=== PATIENT | male | born 1965 | race Caucasian/White ===

== ENCOUNTER 2019-06-26 19:24 | Emergency (ER) | payer SELFPAY ==
[~2019-06-26] VITALS: Ht 182.9 cm; Wt 90.7 kg
[2019-06-26 19:32] VITALS: BP 146/90
== END 2019-06-27 00:56 | disposition left against medical advice (07) ==
LOC: EDBD 19:24 → ER 19:24
DX: F10.129 Alcohol abuse with intoxication, unspecified (principal); Z53.21 Procedure and treatment not carried out due to patient leaving prior to being seen by health care provider; Y90.9 Presence of alcohol in blood, level not specified
CPT/HCPCS: 36415; 73590; 80320

== ENCOUNTER 2019-06-29 01:30 | Emergency (ER) | payer BC, OTHER ==
[~2019-06-29] VITALS: Ht 177.8 cm; Wt 77.1 kg
[2019-06-29 04:04] VITALS: BP 135/88
[2019-06-29] MEDS ORDERED: cefTRIAXone SOD 1,000 MG VL IM ONE (04:30)
[2019-06-29] MEDS ORDERED: HYDROcodone-ACET 10/325MG TAB PO ONE (05:15)
== END 2019-06-29 05:06 | disposition home or self-care (01) ==
LOC: ER 01:36
DX: S81.812A Laceration without foreign body, left lower leg, initial encounter (principal); W45.8XXA Other foreign body or object entering through skin, initial encounter; Y93.89 Activity, other specified; Y92.89 Other specified places as the place of occurrence of the external cause; Y99.8 Other external cause status
CPT/HCPCS: 12002; 96372; 99283; J0696

== ENCOUNTER 2022-12-05 15:49 | Inpatient (IN) | payer BC, MEDICAID ==
[~2022-12-05] VITALS: Ht 177.8 cm; Wt 69.1 kg
[2022-12-05 16:52] LABS: White Blood Cell 6.1 10^3/uL (4.4-10.8)
[2022-12-05 16:54] LABS: Hematocrit 19.7 % (41.0-53.0); Mean Corpuscular Hemoglobin 38.9 pg (28.0-32.0); Mean Corpuscular Hgb Conc. 33.9 g/dL (32.0-36.0); Mean Corpuscular Volume 114.9 fL (80.0-100.0); Red Blood Cells 1.71 10^6/uL (4.5-5.90)
[2022-12-05 17:36] LABS: Red Cell Distribution Width 20.1 % (11.8-14.3)
[2022-12-05 17:39] LABS: Hemoglobin 6.7 g/dL (13.5-17.5)
[2022-12-05 17:41] LABS: Basophils % (manual) 0 (0.0-2.0); Blast Cells 0; Eosinophils % (manual) 0 (0-7); Metamyelocytes % 0; Myelocytes % 0; Promyelocytes % 0; Reactive Lymphocytes 0
[2022-12-05 17:47] LABS: Albumin 2.6 g/dL (3.4-5.0); Anion Gap 8 (5-15); Blood Alcohol < 3.0 mg/dL (<10); Blood Urea Nitrogen 33 mg/dL (7-18); Calcium 7.6 mg/dL (8.5-10.1); Carbon Dioxide 17 mmol/L (21-32); Chloride 114 mmol/L (98-107); Glucose 107 mg/dL (74-106); Potassium 3.6 mmol/L (3.5-5.1); Sodium 139 mmol/L (136-145)
[2022-12-05 17:50] LABS: Alanine Aminotransferase 34 U/L (16-61); Alkaline Phosphatase 95 U/L (45-117); Aspartate Aminotransferase 53 U/L (15-37); BUN/Creatinine Ratio 28.4 (10.0-20.0); Bilirubin, Total 3.5 mg/dL (0.2-1.0); GFR African American 83 mL/min; GFR Non-African American 69 mL/min; Total Protein 6.3 g/dL (6.4-8.2)
[2022-12-05 18:05] LABS: Lactic Acid w/Reflex 2.4 mmol/L (0.4-2.0)
[2022-12-05 18:44] LABS: Band Neutrophils % (manual) 2; Lymphocytes % (manual) 19 (10.0-50.0); Monocytes % (manual) 4 (0-12)
[2022-12-05 21:17] LABS: Acetaminophen 2.6 ug/mL (10-30)
[2022-12-05 21:19] LABS: Salicylate < 1.7 mg/dL (2.8-20.0)
[2022-12-05] MEDS ORDERED: ONDANSETRON HCL 4 MG/2 ML VIAL IV PRN (21:30)
[2022-12-05] MEDS ORDERED: DOCUSATE SOD 100 MG CAP PO PRN (21:30)
[2022-12-05] MEDS ORDERED: ALBUMIN 25% 100 ML IV ONE (21:30)
[2022-12-05] MEDS ORDERED: ACETAMINOPHEN 325 MG TAB PO PRN (21:30)
[2022-12-05] MEDS ORDERED: SODIUM CHLORIDE 0.9% 500 ML IV ONE (21:30)
[2022-12-05] MEDS ORDERED: MORPHINE SULFATE 4 MG/ML SYR/VIAL IV ONE (21:45)
[2022-12-05] MEDS ORDERED: IOHEXOL 350 MG/ML 100ML IJ ONE (21:53)
[2022-12-05 21:54] LABS: CRP High Sensitivity 0.3 mg/dL (< 0.3); Magnesium 1.4 mg/dL (1.6-2.6)
[2022-12-05] MEDS ORDERED: LACTATED RINGER'S 1,000 ML IV ONE (22:00)
[2022-12-05] MEDS ORDERED: cefTRIAXone 1GM/50ML D5W 50 ML IV ONE (22:00)
[2022-12-05 22:06] LABS: % Iron Saturation 36.8 % (20-55)
[2022-12-05] MEDS: FAMOTIDINE (10MG/ML) 2ML VL IV SCH (22:41)
[2022-12-05] MEDS ORDERED: NITROGLYCERIN 0.4 MG SL TAB SL PRN (23:00)
[2022-12-05] MEDS ORDERED: MORPHINE SULFATE INJ 2 MG/ml SYRG IV PRN (23:00)
[2022-12-05] MEDS: SODIUM CHLORIDE 0.9% 1,000 ML IV SCH (23:02)
[2022-12-06 00:25] LABS: INR 1.83 (0.9-1.15); Partial Thromboplastin Time 39.6 SEC (24.5-34.5)
[2022-12-06 00:26] LABS: Urine Bacteria NONE SEEN /hpf (None Seen); Urine Blood 1+ /uL (Negative); Urine Specific Gravity 1.038 (1.001-1.035); Urine WBC 11 /hpf (0 - 3)
[2022-12-06 01:07] LABS: Alcohol, Urine < 3.0 mg/dL (0-10); Amphetamine Screen, Urine NEGATIVE (NEGATIVE); Barbiturate Scree,Urine NEGATIVE (NEGATIVE); Benzodiazephine Screen, Urine NEGATIVE (NEGATIVE); Cocaine Screen, Urine NEGATIVE (NEGATIVE); Opiate Scree,Urine POSITIVE (NEGATIVE)
[2022-12-06 01:14] LABS: Cannabinoid Screen, Urine NEGATIVE (NEGATIVE); Phencyclidine Screen, Urine NEGATIVE (NEGATIVE)
[2022-12-06] MEDS ORDERED: LORazepam 2MG/ML-1ML VIAL IV ONE (03:45)
[2022-12-06 04:13] VITALS: BP 81/48
[2022-12-06 04:28] VITALS: BP 90/44
[2022-12-06 06:38] VITALS: BP 94/59
[2022-12-06] MEDS: cefTRIAXone 1GM/50ML D5W 50 ML IV SCH (09:00)
[2022-12-06 09:18] LABS: Basophils # (auto) 0.1 10 ^3/uL (0-0.2); Eosinophils # (auto) 0.2 10 ^3/uL (0-0.8); Hemoglobin 7.3 g/dL (13.5-17.5); Nucleated Red Blood Cells % 0.2 %
[2022-12-06 09:20] LABS: Basophils % (auto) 1.1 % (0.0-2.0); Eosinophils % (auto) 2.5 % (0.0-7.0); Hematocrit 21.7 % (41.0-53.0); Lymphocytes # (auto) 1.3 10 ^3/uL (0.4-5.4); Mean Corpuscular Hemoglobin 37.8 pg (28.0-32.0); Mean Corpuscular Hgb Conc. 33.7 g/dL (32.0-36.0); Mean Corpuscular Volume 112.3 fL (80.0-100.0); Monocytes % (auto) 14.8 % (0.0-12.0); Neutrophils # (auto) 4.1 10 ^3/uL (1.6-8.6); Neutrophils % (auto) 61.6 % (37.0-80.0); Red Blood Cells 1.93 10^6/uL (4.5-5.90); Red Cell Distribution Width 23.3 % (11.8-14.3); White Blood Cell 6.7 10^3/uL (4.4-10.8)
[2022-12-06 09:24] LABS: Albumin 2.5 g/dL (3.4-5.0); Calcium 7.7 mg/dL (8.5-10.1); Potassium 3.2 mmol/L (3.5-5.1)
[2022-12-06 09:26] LABS: BUN/Creatinine Ratio 23.8 (10.0-20.0); Bilirubin, Total 2.7 mg/dL (0.2-1.0)
[2022-12-06] MEDS: FAMOTIDINE (10MG/ML) 2ML VL IV SCH ×2 (10:37→21:43)
[2022-12-06] MEDS: HYDROcodone-ACET 5/325MG TAB PO PRN (15:02)
[2022-12-06] MEDS: SODIUM CHLORIDE 0.9% 1,000 ML IV SCH (15:57)
[2022-12-07] MEDS: HYDROcodone-ACET 5/325MG TAB PO PRN ×4 (01:26→20:26)
[2022-12-07 06:01] LABS: Hemoglobin 8.1 g/dL (13.5-17.5)
[2022-12-07 06:04] LABS: Basophils # (auto) 0 10 ^3/uL (0-0.2); Basophils % (auto) 0.6 % (0.0-2.0); Eosinophils # (auto) 0.2 10 ^3/uL (0-0.8); Eosinophils % (auto) 2.5 % (0.0-7.0); Hematocrit 22.8 % (41.0-53.0); Lymphocytes # (auto) 1.7 10 ^3/uL (0.4-5.4); Lymphocytes % (auto) 21.5 % (10.0-50.0); Mean Corpuscular Hemoglobin 38.8 pg (28.0-32.0); Mean Corpuscular Hgb Conc. 35.6 g/dL (32.0-36.0); Mean Corpuscular Volume 108.9 fL (80.0-100.0); Monocytes # (auto) 1.1 10 ^3/uL (0-1.3); Neutrophils # (auto) 4.9 10 ^3/uL (1.6-8.6); Neutrophils % (auto) 61.4 % (37.0-80.0); Red Blood Cells 2.09 10^6/uL (4.5-5.90); White Blood Cell 7.9 10^3/uL (4.4-10.8)
[2022-12-07 06:07] LABS: Red Cell Distribution Width 22.9 % (11.8-14.3)
[2022-12-07 06:23] LABS: BUN/Creatinine Ratio 18.3 (10.0-20.0); Calcium 7.8 mg/dL (8.5-10.1); Potassium 3.1 mmol/L (3.5-5.1)
[2022-12-07] MEDS: SODIUM CHLORIDE 0.9% 1,000 ML IV SCH ×2 (06:50→23:30)
[2022-12-07 08:52] LABS: Hepatitis B Surface Antibody Negative (Negative)
[2022-12-07 09:28] VITALS: BP 118/70
[2022-12-07 09:53] VITALS: BP 118/70
[2022-12-07] MEDS ORDERED: GADOTERATE MEG 10 MMOL/20ml INJ (0.5MMOL/ml) IV ONE (09:56)
[2022-12-07 09:59] LABS: Hepatitis C Antibody Negative (Negative)
[2022-12-07] MEDS: FAMOTIDINE (10MG/ML) 2ML VL IV SCH ×2 (10:00→20:54)
[2022-12-07] MEDS: cefTRIAXone 1GM/50ML D5W 50 ML IV SCH (10:00)
[2022-12-07 13:00] VITALS: BP 115/68
[2022-12-07 17:00] VITALS: BP 109/59
[2022-12-07 20:00] VITALS: BP 104/65
[2022-12-07 22:00] VITALS: BP 104/65
[2022-12-08] VITALS (7 sets, daily range): BP systolic 104–139; BP diastolic 65–79
[2022-12-08] MEDS: HYDROcodone-ACET 5/325MG TAB PO PRN ×3 (04:31→20:59)
[2022-12-08] MEDS: FAMOTIDINE (10MG/ML) 2ML VL IV SCH ×2 (08:55→21:00)
[2022-12-08] MEDS: cefTRIAXone 1GM/50ML D5W 50 ML IV SCH (08:55)
[2022-12-08] MEDS: SODIUM CHLORIDE 0.9% 1,000 ML IV SCH (14:59)
[2022-12-08] MEDS ORDERED: MULTIPLE VITAMINS W/ MINERALS TAB PO ONE (15:15)
[2022-12-08] MEDS ORDERED: THIAMINE HCL 100 MG TAB PO ONE (15:15)
[2022-12-08] MEDS ORDERED: FOLIC ACID 1 MG TAB PO ONE (15:15)
[2022-12-08 17:35] LABS: Albumin 2.6 g/dL (3.4-5.0); BUN/Creatinine Ratio 16.4 (10.0-20.0); Calcium 7.9 mg/dL (8.5-10.1); Magnesium 1.2 mg/dL (1.6-2.6); Potassium 3.4 mmol/L (3.5-5.1)
[2022-12-08 17:36] LABS: Basophils # (auto) 0.1 10 ^3/uL (0-0.2); Basophils % (auto) 0.8 % (0.0-2.0); Eosinophils # (auto) 0.2 10 ^3/uL (0-0.8); Eosinophils % (auto) 2.1 % (0.0-7.0); Hematocrit 23.2 % (41.0-53.0); Hemoglobin 8.2 g/dL (13.5-17.5); Lymphocytes # (auto) 1.5 10 ^3/uL (0.4-5.4); Lymphocytes % (auto) 19.8 % (10.0-50.0); Mean Corpuscular Hgb Conc. 35.2 g/dL (32.0-36.0); Mean Corpuscular Volume 107.9 fL (80.0-100.0); Monocytes # (auto) 1.2 10 ^3/uL (0-1.3); Monocytes % (auto) 15.5 % (0.0-12.0); Neutrophils # (auto) 4.7 10 ^3/uL (1.6-8.6); Neutrophils % (auto) 61.8 % (37.0-80.0); Red Blood Cells 2.15 10^6/uL (4.5-5.90); Red Cell Distribution Width 22.2 % (11.8-14.3); White Blood Cell 7.6 10^3/uL (4.4-10.8)
[2022-12-08 17:38] LABS: Bilirubin, Total 3.2 mg/dL (0.2-1.0); Total Protein 6.5 g/dL (6.4-8.2)
[2022-12-08 17:43] LABS: Folate (Folic Acid) 15.81 ng/mL (5.38-24); INR 1.64 (0.9-1.15)
[2022-12-08] MEDS: LACTULOSE 20Gm/30ML SOLN PO SCH (20:58)
[2022-12-09] MEDS: HYDROcodone-ACET 5/325MG TAB PO PRN ×3 (03:25→23:09)
[2022-12-09 05:00] VITALS: BP 111/69
[2022-12-09] MEDS: SODIUM CHLORIDE 0.9% 1,000 ML IV SCH (08:50)
[2022-12-09 08:54] LABS: Eosinophils # (auto) 0.3 10 ^3/uL (0-0.8); Eosinophils % (auto) 3.5 % (0.0-7.0); Hemoglobin 8.6 g/dL (13.5-17.5); Monocytes # (auto) 1.1 10 ^3/uL (0-1.3); Neutrophils # (auto) 4.7 10 ^3/uL (1.6-8.6)
[2022-12-09 08:55] LABS: Basophils # (auto) 0 10 ^3/uL (0-0.2); Basophils % (auto) 0.6 % (0.0-2.0); Hematocrit 24.5 % (41.0-53.0); Lymphocytes # (auto) 1.7 10 ^3/uL (0.4-5.4); Lymphocytes % (auto) 21.7 % (10.0-50.0); Mean Corpuscular Hemoglobin 38.8 pg (28.0-32.0); Mean Corpuscular Volume 110.8 fL (80.0-100.0); Monocytes % (auto) 13.6 % (0.0-12.0); Neutrophils % (auto) 60.6 % (37.0-80.0); Nucleated Red Blood Cells % 0.1 %; Red Blood Cells 2.21 10^6/uL (4.5-5.90); White Blood Cell 7.8 10^3/uL (4.4-10.8)
[2022-12-09 08:58] LABS: Red Cell Distribution Width 22.3 % (11.8-14.3)
[2022-12-09 09:00] VITALS: BP 107/68
[2022-12-09 09:23] LABS: BUN/Creatinine Ratio 14.5 (10.0-20.0); Calcium 7.8 mg/dL (8.5-10.1); Magnesium 1.2 mg/dL (1.6-2.6); Potassium 3.6 mmol/L (3.5-5.1)
[2022-12-09] MEDS: MULTIPLE VITAMINS W/ MINERALS TAB PO SCH (09:54)
[2022-12-09] MEDS: THIAMINE HCL 100 MG TAB PO SCH (09:54)
[2022-12-09] MEDS: FOLIC ACID 1 MG TAB PO SCH (09:54)
[2022-12-09] MEDS: cefTRIAXone 1GM/50ML D5W 50 ML IV SCH (09:54)
[2022-12-09] MEDS: FAMOTIDINE (10MG/ML) 2ML VL IV SCH ×2 (09:54→22:00)
[2022-12-09] MEDS: LACTULOSE 20Gm/30ML SOLN PO SCH ×4 (09:55→22:00)
[2022-12-09] MEDS: MAGNESIUM SULFATE 1GM/100ML 100 ML IV SCH ×2 (12:00→13:21)
[2022-12-09 13:00] VITALS: BP 101/60
[2022-12-09] MEDS ORDERED: MAGNESIUM SULFATE 1GM/100ML 100 ML IV ONE (16:03)
[2022-12-09 17:00] VITALS: BP 112/71
[2022-12-09 22:00] VITALS: BP 108/68
[2022-12-09] MEDS: MAGNESIUM OXIDE 400 MG TAB PO SCH (23:09)
[2022-12-10 05:00] VITALS: BP 105/70
[2022-12-10 08:00] VITALS: BP 108/58
[2022-12-10 09:00] VITALS: BP 108/58
[2022-12-10 09:14] LABS: Eosinophils # (auto) 0.2 10 ^3/uL (0-0.8); Hemoglobin 9.4 g/dL (13.5-17.5); Lymphocytes # (auto) 1.5 10 ^3/uL (0.4-5.4); Lymphocytes % (auto) 18.2 % (10.0-50.0); White Blood Cell 8.3 10^3/uL (4.4-10.8)
[2022-12-10 09:17] LABS: Basophils # (auto) 0.1 10 ^3/uL (0-0.2); Eosinophils % (auto) 2.8 % (0.0-7.0); Hematocrit 27.1 % (41.0-53.0); Mean Corpuscular Hemoglobin 38.6 pg (28.0-32.0); Mean Corpuscular Hgb Conc. 34.6 g/dL (32.0-36.0); Mean Corpuscular Volume 111.6 fL (80.0-100.0); Monocytes % (auto) 12.3 % (0.0-12.0); Neutrophils # (auto) 5.5 10 ^3/uL (1.6-8.6); Neutrophils % (auto) 65.7 % (37.0-80.0); Red Blood Cells 2.43 10^6/uL (4.5-5.90)
[2022-12-10 09:22] LABS: Red Cell Distribution Width 22.4 % (11.8-14.3)
[2022-12-10] MEDS: FAMOTIDINE (10MG/ML) 2ML VL IV SCH ×2 (09:49→22:26)
[2022-12-10] MEDS: OXYCODONE W/ ACETAMINOPHEN 5/325MG TABLET PO PRN ×3 (09:50→22:26)
[2022-12-10] MEDS: MULTIPLE VITAMINS W/ MINERALS TAB PO SCH (09:50)
[2022-12-10] MEDS: FOLIC ACID 1 MG TAB PO SCH (09:50)
[2022-12-10] MEDS: MAGNESIUM OXIDE 400 MG TAB PO SCH ×2 (09:50→22:26)
[2022-12-10] MEDS: cefTRIAXone 1GM/50ML D5W 50 ML IV SCH (09:50)
[2022-12-10] MEDS: THIAMINE HCL 100 MG TAB PO SCH (09:51)
[2022-12-10 10:34] LABS: BUN/Creatinine Ratio 11.9 (10.0-20.0); Calcium 8.4 mg/dL (8.5-10.1); Magnesium 1.9 mg/dL (1.6-2.6); Potassium 3.9 mmol/L (3.5-5.1)
[2022-12-10] MEDS ORDERED: MAGNESIUM SULFATE 1GM/100ML 200 ML IV ONE (12:03)
[2022-12-10] MEDS: LACTULOSE 20Gm/30ML SOLN PO SCH ×3 (12:07→22:27)
[2022-12-10] MEDS: MAGNESIUM SULFATE 1GM/100ML 100 ML IV SCH ×2 (12:08→13:13)
[2022-12-10 13:00] VITALS: BP 97/63
[2022-12-10 17:00] VITALS: BP 87/45
[2022-12-10 22:00] VITALS: BP 116/67
[2022-12-11 05:00] VITALS: BP 140/68
[2022-12-11] MEDS: LACTULOSE 20Gm/30ML SOLN PO SCH ×4 (05:49→21:53)
[2022-12-11 09:00] VITALS: BP 95/59
[2022-12-11] MEDS: FAMOTIDINE (10MG/ML) 2ML VL IV SCH ×2 (09:53→21:50)
[2022-12-11] MEDS: MAGNESIUM OXIDE 400 MG TAB PO SCH ×2 (09:53→21:50)
[2022-12-11] MEDS: FOLIC ACID 1 MG TAB PO SCH (09:53)
[2022-12-11] MEDS: MULTIPLE VITAMINS W/ MINERALS TAB PO SCH (09:53)
[2022-12-11] MEDS: THIAMINE HCL 100 MG TAB PO SCH (09:53)
[2022-12-11] MEDS: OXYCODONE W/ ACETAMINOPHEN 5/325MG TABLET PO PRN ×2 (12:03→18:27)
[2022-12-11 12:32] VITALS: BP 119/73
[2022-12-11 16:36] VITALS: BP 101/60
[2022-12-11 22:00] VITALS: BP 99/56
[2022-12-12] MEDS: OXYCODONE W/ ACETAMINOPHEN 5/325MG TABLET PO PRN ×3 (04:14→18:29)
[2022-12-12 05:00] VITALS: BP 101/56
[2022-12-12] MEDS: LACTULOSE 20Gm/30ML SOLN PO SCH ×4 (06:00→22:12)
[2022-12-12 06:31] LABS: Eosinophils # (auto) 0.2 10 ^3/uL (0-0.8); Hematocrit 24.7 % (41.0-53.0); Hemoglobin 8.6 g/dL (13.5-17.5); Lymphocytes # (auto) 1.1 10 ^3/uL (0.4-5.4); Red Blood Cells 2.24 10^6/uL (4.5-5.90); White Blood Cell 6.9 10^3/uL (4.4-10.8)
[2022-12-12 06:32] LABS: Basophils # (auto) 0.1 10 ^3/uL (0-0.2); Basophils % (auto) 1.1 % (0.0-2.0); Eosinophils % (auto) 3.2 % (0.0-7.0); Lymphocytes % (auto) 16.3 % (10.0-50.0); Mean Corpuscular Hemoglobin 38.6 pg (28.0-32.0); Mean Corpuscular Volume 110.3 fL (80.0-100.0); Monocytes # (auto) 1.3 10 ^3/uL (0-1.3); Neutrophils # (auto) 4.2 10 ^3/uL (1.6-8.6); Neutrophils % (auto) 61.1 % (37.0-80.0); Nucleated Red Blood Cells % 0.1 %
[2022-12-12 06:34] LABS: Monocytes % (auto) 18.3 % (0.0-12.0); Red Cell Distribution Width 20.4 % (11.8-14.3)
[2022-12-12 07:09] LABS: Calcium 8.4 mg/dL (8.5-10.1); Magnesium 1.8 mg/dL (1.6-2.6); Potassium 3.7 mmol/L (3.5-5.1)
[2022-12-12 07:11] LABS: BUN/Creatinine Ratio 16.7 (10.0-20.0)
[2022-12-12 08:30] VITALS: BP 103/51
[2022-12-12 09:00] VITALS: BP 103/51
[2022-12-12] MEDS: MAGNESIUM OXIDE 400 MG TAB PO SCH ×2 (09:47→22:12)
[2022-12-12] MEDS: FOLIC ACID 1 MG TAB PO SCH (09:47)
[2022-12-12] MEDS: MULTIPLE VITAMINS W/ MINERALS TAB PO SCH (09:47)
[2022-12-12] MEDS: THIAMINE HCL 100 MG TAB PO SCH (09:47)
[2022-12-12] MEDS: FAMOTIDINE (10MG/ML) 2ML VL IV SCH ×2 (09:47→22:12)
[2022-12-12 13:00] VITALS: BP 107/57
[2022-12-12 16:44] VITALS: BP 130/74
[2022-12-12 17:06] LABS: Methylmalonic Acid 107 nmol/L (0-378)
[2022-12-12 22:22] VITALS: BP 100/54
[2022-12-13] MEDS: OXYCODONE W/ ACETAMINOPHEN 5/325MG TABLET PO PRN ×3 (00:44→17:04)
[2022-12-13 05:08] VITALS: BP 118/67
[2022-12-13 06:09] LABS: Basophils # (auto) 0.1 10 ^3/uL (0-0.2); Eosinophils # (auto) 0.2 10 ^3/uL (0-0.8); Hemoglobin 8.5 g/dL (13.5-17.5); Lymphocytes # (auto) 1.3 10 ^3/uL (0.4-5.4); Monocytes # (auto) 1.4 10 ^3/uL (0-1.3)
[2022-12-13 06:12] LABS: Basophils % (auto) 1.2 % (0.0-2.0); Hematocrit 24.4 % (41.0-53.0); Lymphocytes % (auto) 18.2 % (10.0-50.0); Mean Corpuscular Hemoglobin 38.9 pg (28.0-32.0); Mean Corpuscular Hgb Conc. 34.9 g/dL (32.0-36.0); Mean Corpuscular Volume 111.4 fL (80.0-100.0); Neutrophils # (auto) 4.1 10 ^3/uL (1.6-8.6); Nucleated Red Blood Cells % 0.2 %; Red Blood Cells 2.19 10^6/uL (4.5-5.90); White Blood Cell 7.1 10^3/uL (4.4-10.8)
[2022-12-13] MEDS: LACTULOSE 20Gm/30ML SOLN PO SCH ×4 (06:12→21:26)
[2022-12-13 06:30] LABS: Monocytes % (auto) 19.6 % (0.0-12.0); Red Cell Distribution Width 20.1 % (11.8-14.3)
[2022-12-13 06:34] LABS: Potassium 4.1 mmol/L (3.5-5.1)
[2022-12-13 06:41] LABS: BUN/Creatinine Ratio 15.5 (10.0-20.0); Calcium 8.4 mg/dL (8.5-10.1); Magnesium 1.8 mg/dL (1.6-2.6)
[2022-12-13 09:00] VITALS: BP 136/84
[2022-12-13] MEDS: FAMOTIDINE (10MG/ML) 2ML VL IV SCH ×2 (09:10→21:24)
[2022-12-13] MEDS: THIAMINE HCL 100 MG TAB PO SCH (09:11)
[2022-12-13] MEDS: FOLIC ACID 1 MG TAB PO SCH (09:11)
[2022-12-13] MEDS: MULTIPLE VITAMINS W/ MINERALS TAB PO SCH (09:11)
[2022-12-13] MEDS: MAGNESIUM OXIDE 400 MG TAB PO SCH ×2 (09:11→21:24)
[2022-12-13 12:00] VITALS: BP 117/67
[2022-12-13 17:00] VITALS: BP 111/64
[2022-12-13 22:00] VITALS: BP 113/64
[2022-12-14 04:49] VITALS: BP 110/68
[2022-12-14] MEDS: LACTULOSE 20Gm/30ML SOLN PO SCH ×2 (06:36→12:00)
[2022-12-14] MEDS ORDERED: LACT10SO3 PO (08:45)
[2022-12-14] MEDS ORDERED: PANT40TA2 PO (08:45)
[2022-12-14] MEDS ORDERED: THIA100T13 PO (08:45)
[2022-12-14] MEDS ORDERED: MULT1TAB95 PO (08:45)
[2022-12-14] MEDS ORDERED: FOLI-119 PO (08:45)
[2022-12-14 09:00] VITALS: BP 105/57
[2022-12-14] MEDS: MULTIPLE VITAMINS W/ MINERALS TAB PO SCH (09:35)
[2022-12-14] MEDS: FAMOTIDINE (10MG/ML) 2ML VL IV SCH (09:35)
[2022-12-14] MEDS: THIAMINE HCL 100 MG TAB PO SCH (09:35)
[2022-12-14] MEDS: FOLIC ACID 1 MG TAB PO SCH (09:36)
[2022-12-14] MEDS: MAGNESIUM OXIDE 400 MG TAB PO SCH (09:36)
[2022-12-14] MEDS: OXYCODONE W/ ACETAMINOPHEN 5/325MG TABLET PO PRN (09:42)
== END 2022-12-14 13:08 | disposition home or self-care (01) ==
LOC: EDBD 15:49 → ER 15:49 → EDUNIT# 15:49 → TELE 22:49 → TELE-WESTW 12-07 09:00
PROVIDERS: ADMIT Nurse Practitioner Family; ATTEND Internal Medicine Geriatric Medicine
PROC: 30233N0 Transfusion of Autologous Red Blood Cells into Peripheral Vein, Percutaneous Approach (ICD-10-PCS; principal; 2022-12-06)
DX: K74.60 Unspecified cirrhosis of liver (principal); G93.41 Metabolic encephalopathy; K76.82 Hepatic encephalopathy; D69.6 Thrombocytopenia, unspecified; E87.20 Acidosis, unspecified; I95.9 Hypotension, unspecified; K76.6 Portal hypertension; E88.09 Other disorders of plasma-protein metabolism, not elsewhere classified; E87.8 Other disorders of electrolyte and fluid balance, not elsewhere classified; D53.9 Nutritional anemia, unspecified; S70.02XA Contusion of left hip, initial encounter; E83.42 Hypomagnesemia; F10.20 Alcohol dependence, uncomplicated; F17.210 Nicotine dependence, cigarettes, uncomplicated; E86.0 Dehydration; R79.89 Other specified abnormal findings of blood chemistry; D50.9 Iron deficiency anemia, unspecified; W18.39XA Other fall on same level, initial encounter; Y93.89 Activity, other specified; Y92.481 Parking lot as the place of occurrence of the external cause; Y99.8 Other external cause status
CPT/HCPCS: 36415; 70450; 74175; 74183; 80048; 80053; 80307; 80320; 80329; 81001; 82010; 82140; 82553; 82607; 82746; 83540; 83550; 83605; 83615; 83690; 83735; 83880; 84155; 84165; 84443; 84484; 85007; 85025; 85027; 85045; 85379; 85610; 85652; 85730; 86038; 86141; 86706; 86803; 86850; 86880; 86900; 86901; 86920; 87040; 87081; 87340; 96365; 96375; 97110; 97116; 97163; 97530; 99291; G0378; J0696; J3490; P9047

== ENCOUNTER 2023-03-15 22:52 | Emergency (ER) | payer MEDICAID ==
[~2023-03-15] VITALS: Ht 177.8 cm; Wt 160.0 kg
[~2023-03-15 22:52] MED LIST: FOLI-119 PO; LACT10SO3 PO; MULT1TAB95 PO; PANT40TA2 PO; THIA100T13 PO
[2023-03-16 00:11] LABS: Basophils # (auto) 0.1 10 ^3/uL (0-0.2); Basophils % (auto) 1.6 % (0.0-2.0); Monocytes # (auto) 0.8 10 ^3/uL (0-1.3); Neutrophils # (auto) 3.4 10 ^3/uL (1.6-8.6)
[2023-03-16 00:14] LABS: Eosinophils # (auto) 0.4 10 ^3/uL (0-0.8); Eosinophils % (auto) 5.8 % (0.0-7.0); Hematocrit 26.2 % (41.0-53.0); Hemoglobin 8.7 g/dL (13.5-17.5); Lymphocytes # (auto) 1.4 10 ^3/uL (0.4-5.4); Lymphocytes % (auto) 23.6 % (10.0-50.0); Mean Corpuscular Hemoglobin 36.1 pg (28.0-32.0); Mean Corpuscular Volume 109.4 fL (80.0-100.0); Monocytes % (auto) 12.6 % (0.0-12.0); Neutrophils % (auto) 56.4 % (37.0-80.0); Nucleated Red Blood Cells % 0.1 %; White Blood Cell 6.1 10^3/uL (4.4-10.8)
[2023-03-16 00:22] LABS: Albumin 3.6 g/dL (3.2-4.8); Alkaline Phosphatase 190 U/L (46-116); Anion Gap 10 (5-15); Aspartate Aminotransferase 73 U/L (13-40); BUN/Creatinine Ratio 10.6 (10.0-20.0); Bilirubin, Total 1.3 mg/dL (0.2-1.0); Blood Urea Nitrogen 9 mg/dL (9-23); Calcium 8.6 mg/dL (8.7-10.4); Carbon Dioxide 22 mmol/L (20-30); Chloride 111 mmol/L (98-107); Glucose 124 mg/dL (74-106); Potassium 3.8 mmol/L (3.5-5.1); Sodium 143 mmol/L (136-145); Total Protein 7.7 g/dL (5.7-8.2)
[2023-03-16 00:30] LABS: Blood Alcohol 317.1 mg/dL (<10)
[2023-03-16 00:34] LABS: Red Cell Distribution Width 20.1 % (11.8-14.3)
[2023-03-16 00:42] LABS: Alanine Aminotransferase 24 U/L (7-40)
[2023-03-16 04:34] LABS: Basophils # (auto) 0.1 10 ^3/uL (0-0.2); Eosinophils # (auto) 0.2 10 ^3/uL (0-0.8); Hemoglobin 8.2 g/dL (13.5-17.5); Lymphocytes # (auto) 1.4 10 ^3/uL (0.4-5.4); Nucleated Red Blood Cells % 0.2 %
[2023-03-16 04:36] LABS: Basophils % (auto) 2.4 % (0.0-2.0); Eosinophils % (auto) 3.9 % (0.0-7.0); Hematocrit 25.4 % (41.0-53.0); Lymphocytes % (auto) 28.7 % (10.0-50.0); Mean Corpuscular Hemoglobin 35.9 pg (28.0-32.0); Mean Corpuscular Hgb Conc. 32.2 g/dL (32.0-36.0); Mean Corpuscular Volume 111.5 fL (80.0-100.0); Monocytes # (auto) 0.4 10 ^3/uL (0-1.3); Monocytes % (auto) 9.3 % (0.0-12.0); Neutrophils # (auto) 2.6 10 ^3/uL (1.6-8.6); Neutrophils % (auto) 55.7 % (37.0-80.0); Red Blood Cells 2.28 10^6/uL (4.5-5.90); White Blood Cell 4.7 10^3/uL (4.4-10.8)
[2023-03-16 05:04] LABS: INR 1.32 (0.9-1.15); Partial Thromboplastin Time 31.9 SEC (24.5-34.5); Prothrombin Time 13.6 sec (9.3-11.8)
[2023-03-16 06:44] VITALS: BP 124/67; PULSE 95; RESP 18; TEMP 98; O2SAT 97
== END 2023-03-16 05:09 | disposition home or self-care (01) ==
LOC: ER 22:54
DX: S22.42XA Multiple fractures of ribs, left side, initial encounter for closed fracture (principal); F10.10 Alcohol abuse, uncomplicated; Z79.899 Other long term (current) drug therapy; W18.39XA Other fall on same level, initial encounter; Y93.89 Activity, other specified; Y92.89 Other specified places as the place of occurrence of the external cause; Y99.8 Other external cause status; Y90.8 Blood alcohol level of 240 mg/100 ml or more
CPT/HCPCS: 36415; 70450; 70486; 71045; 71250; 72125; 74176; 80053; 80320; 85025; 85610; 85730